=== PATIENT | male | born 1995 | race American Indian/Alaskan Native ===

== ENCOUNTER 2016-04-04 10:08 | Emergency (ER) | payer SELFPAY ==
--- NOTE | 2016-04-04 11:11 | Emergency Department Report ---
Upper Extremity - HPI Chief Complaint: Shoulder Injury Stated Complaint: LEFT SHOULDER PAIN Time Seen by Provider: 04/04/16 11:07 Upper Extremity: Left Shoulder Occurred When: 2 Days Severity: mild Symptoms: Yes Pain with Movement (pain with stretching), No Deformity, No Limited Range of Movement, No Numbness, No Weakness, No Swelling, No Bruising/ Ecchymosis, No Laceration or Abrasion Other History: Patient is a 20-year-old male who presents ED complaining of left shoulder back pain 2 days. 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 Patient states feeling a weird lump on the back of his shoulder or couple of days. Patient states it's nontender to palpation. Patient denies recent fall or trauma to the shoulder/fevers/chills/ nausea/vomiting/headache/blurred vision/chest pain/shortness of breath or any other problems. ED Review of Systems ROS: Stated complaint: LEFT SHOULDER PAIN Other details as noted in HPI Constitutional: denies: chills, fever Eyes: denies: eye pain, eye discharge, vision change ENT: denies: ear pain, throat pain Respiratory: denies: cough, shortness of breath, wheezing Cardiovascular: denies: chest pain, palpitations Endocrine: no symptoms reported Gastrointestinal: denies: abdominal pain, nausea, vomiting, diarrhea Genitourinary: denies: urgency, dysuria Musculoskeletal: myalgia. denies: back pain, joint swelling, arthralgia Skin: denies: rash, lesions Neurological: denies: headache, weakness, paresthesias, confusion, abnormal gait Psychiatric: denies: anxiety, depression Hematological/Lymphatic: denies: easy bleeding, easy bruising ED Past Medical Hx - Medications Home Medications: Home Medications Medication Instructions Recorded Confirmed Last Taken Type Cyclobenzaprine HCl [Flexeril 5 MG 5 mg PO QHS #20 tablet 04/04/16 Unknown Rx TAB] Ibuprofen [Motrin 800 MG tab] 800 mg PO Q8HR PRN #30 tablet 04/04/16 Unknown Rx Upper Extremity Exam - Exam General: Vital signs noted. No distress. Alert and acting appropriately. GENERAL: Alert and oriented x3, no apparent distress, Normal Gait, atraumatic. LUNGS: Symetrical with respiration, No wheezing, no rales or crackles, CTAB. HEART: S1, S2 present, regular rate and rhythm without murmur, no rubs, no gallops. EXTREMITIES/MUSCULOSKELETAL: No cyanosis, clubbing, rash, lesions or edema. Full ROM bilaterally. UE/LE Pulses 2+ bilaterally. LE and UE 5+ strength bilaterally NEUROLOGIC: No focal Deficit, Cranial nerves II through XII are grossly intact. No loss of sensation, No facial droop SKIN: Warm and dry, No lesions, No ulceration or induration present. Head and Torso: No HEENT Abnormality, No Neck Tenderness, No Chest/Lungs Abnormality, No Abdominal Tenderness, No Back Tenderness Shoulder Exam: Yes Normal Range of Motion in Shoulder, No Shoulder Tenderness, No Clavicle Tenderness, No Shoulder Deformity, No AC Joint Tenderness Arm Exam: No Arm/Humerus Tenderness, No Arm Deformity Elbow: No Elbow Tenderness, No Normal Range of Motion in Elbow, No Elbow Deformity Forearm: No Forearm Tenderness, No Forearm Deformity, No Pain with Pronation, No Pain with Supination Wrist: Yes Normal ROM in Wrist, No Wrist Tenderness, No Wrist Deformity, No Snuffbox Tenderness, No Pain with Axial Thumb Compression Hand: Yes Normal ROM in Digit(s), No Hand Tenderness, No Hand Deformity, No Digit Tenderness, No Digit(s) Deformity, No Tendon Dysfunction CMS Exam: No Broken Skin, No Normal Distal Pulses, No Normal Capillary Refill, No Normal Distal Sensation ED Course Vital Signs 04/04/16 10:13 Temperature 97.7 F Pulse Rate 88 Respiratory 18 Rate Blood Pressure 157/104 O2 Sat by Pulse 97 Oximetry ED Medical Decision Making - Medical Decision Making 20-year-old male presents with left shoulder strain. Mildly elevated blood pressure otherwise vital signs stable. Patient is in no acute respiratory distress. ED course: Repeat blood pressure prior to discharge. Blood pressure decreased to 157/90. Patient has asymptomatic elevated blood pressure. Discussed the patient to follow up with the primary care for management of elevated blood pressure. Discussed the patient take medication as prescribed and follow up with primary care physician. Discussed proper stretching techniques. Patient states he understands and will follow-up. Critical care attestation.: If time is entered above; I have spent that time in minutes in the direct care of this critically ill patient, excluding procedure time. ED Disposition Clinical Impression: Myalgia Strain of left shoulder Qualifiers: Encounter type: initial encounter Qualified Code(s): S46.912A - Strain of unspecified muscle, fascia and tendon at shoulder and upper arm level, left arm , initial encounter Disposition: DISCHARGED TO HOME OR SELFCARE Is pt being admited?: No Does the pt Need Aspirin: No Condition: Stable Instructions: Musculoskeletal Pain (ED), Trigger Point Pain (ED), Heat Pack Application (ED) Additional Instructions: Take medication as prescribed. Do not take Flexeril and drive or operate machinery Follow-up H her primary care physician. Prescriptions: Cyclobenzaprine HCl [Flexeril 5 MG TAB] 5 mg PO QHS #20 tablet Ibuprofen [Motrin 800 MG tab] 800 mg PO Q8HR PRN #30 tablet PRN Reason: Pain Referrals: PRIMARY CARE, [Primary Care Provider] - 3-5 Days [facility] [Outside] - 3-5 Days [facility] [Outside] - 3-5 Days [facility] [Outside] - 3-5 Days Forms: Work/School Release Form(ED) Time of Disposition: 11:15
[2016-04-04 11:19] VITALS: BP 157/90
== END 2016-04-04 11:36 | disposition home or self-care (01) ==
LOC: ED 10:08
DX: S46.912A Strain of unspecified muscle, fascia and tendon at shoulder and upper arm level, left arm, initial encounter (principal); M79.1 Myalgia; X58.XXXA Exposure to other specified factors, initial encounter; Y93.9 Activity, unspecified; Y92.9 Unspecified place or not applicable; Y99.9 Unspecified external cause status
CPT/HCPCS: 99282

== ENCOUNTER 2020-11-06 19:01 | Emergency (ER) | payer OTHER ==
[2020-11-06 20:30] VITALS: BP 160/101
--- NOTE | 2020-11-06 20:32 | Emergency Department Report ---
Stated Complaint: LT ARM TINGLING Time Seen by Provider: 11/06/20 20:30 - HPI History of Present Illness: 25-year-old -[place] male presents to the emergency room for left arm intermittent tingling for over a month. Patient reports he has not followed up with anybody. Patient denies any recent traumas. Patient states his arm feels cold at times. 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 - Exam Vital Signs: Vital Signs 11/06/20 11/06/20 20:24 20:30 Temperature 98.4 F Pulse Rate 107 H Respiratory 16 Rate Blood Pressure 160/101 O2 Sat by Pulse 97 100 Oximetry Physical Exam: Patient is alert oriented x3 no acute distress nontoxic in appearance No labored breathing Heart regular rate Left arm full range of motion no tenderness to touch no swelling appreciated skin is warm pulses are intact able to make fists capillary refills less than 3 seconds Patient is ambulatory without difficulties MSE screening note: Focused history and physical exam performed. Due to findings the following was ordered: ED Disposition for MSE Clinical Impression: Tingling of left upper extremity, Severely overweight Disposition: 01 HOME / SELF CARE / HOMELESS Is pt being admited?: No Does the pt Need Aspirin: No Condition: Stable Instructions: Paresthesia, [id number], Exercising to Lose Weight Additional Instructions: Please follow-up with a primary care provider. Also recommend weight loss. Referrals: AMINAH STAUFFER MD [Staff Physician] - 3-5 Days
== END 2020-11-06 21:10 | disposition home or self-care (01) ==
LOC: ED 19:01
DX: E66.3 Overweight (principal); R20.2 Paresthesia of skin
CPT/HCPCS: 99281